=== PATIENT | female | born 1985 | race Caucasian/White ===

== ENCOUNTER 2021-01-12 18:31 | Emergency (ER) | payer OTHER ==
[~2021-01-12] VITALS: Ht 157.5 cm; Wt 72.6 kg
[~2021-01-12 18:31] MED LIST: CYCLOBENZAPRINE10 MG PO; IBUPROFEN800 MG PO
[2021-01-12 20:12] LABS: RED BLOOD COUNT 4.65 M/UL (4.00-5.10); WHITE BLOOD COUNT 5.7 K/UL (4.5-11.0)
[2021-01-12 20:30] LABS: BUN/CREATININE RATIO 13 (0-10)
== END 2021-01-12 23:00 | disposition home or self-care (01) ==
LOC: ER1 18:31
PROVIDERS: Physician Assistant
DX: U07.1 COVID-19 (principal); Z23 Encounter for immunization; Z91.041 Radiographic dye allergy status
CPT/HCPCS: 71045; 80053; 85025; 99285; M0243

== ENCOUNTER 2022-01-24 09:19 | Emergency (ER) | payer OTHER ==
[2022-01-24 14:25] LABS: HEMOGLOBIN 11.5 gm/dl (12.3-15.3); RED BLOOD COUNT 4.88 M/UL (4.00-5.10); WHITE BLOOD COUNT 9.8 K/UL (4.5-11.0)
[2022-01-24 14:59] LABS: BUN/CREATININE RATIO 16 (0-10)
[2022-01-24] MEDS ORDERED: ZOFRAN ODT 4 MG4 MG PO (17:03)
[2022-01-24] MEDS ORDERED: BENTYL 20MG TAB20 MG PO (17:03)
== END 2022-01-24 17:14 | disposition home or self-care (01) ==
LOC: ER1 09:19
PROVIDERS: Student in an Organized Health Care Education/Training Program
DX: R10.9 Unspecified abdominal pain (principal); D75.839 Thrombocytosis, unspecified; Z98.84 Bariatric surgery status
CPT/HCPCS: 80053; 81001; 85025; 96374; 99284; J0500